=== PATIENT | female | born 1935 | race Caucasian/White ===

== ENCOUNTER 2017-07-18 08:48 | Day surgery (SDC) | payer OTHER ==
[2017-07-12 11:48] VITALS: BMI 33.5
[~2017-07-18 08:48] MED LIST: CYCLOPENTOLATE HCL 1% OPHTH SOLN 2 ML BOTTLE OS SCH; FLURBIPROFEN 0.03% OPHTH SOLN 2.5 ML BOTTLE OS SCH; GENTAMICIN SULFATE 0.3% OPHTHALMIC (EYE DROPS) 5ML BOTTLE OS SCH; PHENYLEPHRINE 2.5% OPHTH SOLN 15 ML BOTTLE OS SCH; TROPICAMIDE 1% OPHTH SOLN 15 ML BOTTLE OS SCH
[2017-07-18] MEDS ORDERED: MIDAZOLAM HCL 2 MG/2 ML SINGLE DOSE VIAL ONE (09:13)
[2017-07-18] MEDS ORDERED: PROPOFOL 20 ML ONE ×3 (09:13→10:48)
[2017-07-18] MEDS ORDERED: ONDANSETRON 4 MG/2 ML VIAL ONE (09:13)
[2017-07-18] MEDS: GENTAMICIN SULFATE 0.3% OPHTHALMIC (EYE DROPS) 5ML BOTTLE ONE ×5 (09:20→09:40)
[2017-07-18] MEDS: KETOROLAC TROMETHAMINE 0.5% 5 ML BOTTLE OPTHALMIC OS SCH ×5 (09:20→09:40)
[2017-07-18] MEDS: CYCLOPENTOLATE HCL 1% OPHTH SOLN 2 ML BOTTLE ONE ×5 (09:20→09:40)
[2017-07-18] MEDS: PHENYLEPHRINE 2.5% OPHTH SOLN 15 ML BOTTLE ONE ×5 (09:20→09:40)
[2017-07-18] MEDS: TROPICAMIDE 1% OPHTH SOLN 15 ML BOTTLE ONE ×5 (09:20→09:40)
[2017-07-18] MEDS ORDERED: LIDOCAINE HCL/PF 2% SDV 5ML VIAL ONE (10:08)
[2017-07-18] MEDS ORDERED: CARBACHOL 0.01% INTRA-OCULAR 1.5 ML VIAL ONE (10:08)
[2017-07-18] MEDS ORDERED: POVIDONE-IODINE 5% OPHTHALMIC PREP 30 ML SOLUTION ONE (10:08)
[2017-07-18] MEDS ORDERED: ACETYLCHOLINE 1:100 INTRA-OCUL 20 MG/2 ML KIT ONE (10:08)
[2017-07-18] MEDS ORDERED: BUPIVACAINE HCL/PF 0.5% (5MG/ML) 10 ML VIAL ONE (10:08)
[2017-07-18] MEDS ORDERED: ACETAMINOPHEN 325 MG TABLET (FP) PO PRN (11:19)
[2017-07-18 12:07] VITALS: TEMP 98.1
[2017-07-18 12:27] VITALS: BP 143/72; PULSE 66
--- NOTE | 2017-07-19 08:22 | OP ---
DATE OF OPERATION: 07/18/2017 PREOPERATIVE DIAGNOSIS: Cataract, left eye. POSTOPERATIVE DIAGNOSIS: Cataract, left eye. PROCEDURE PERFORMED: Cataract extraction via phacoemulsification with insertion of posterior chamber lens implant, left eye. SURGEON: Nic Yan M.D. RETAIL RECEIVING CLERK: Fabi Martinez M.D. ANESTHESIA: Regional sedation. ESTIMATED BLOOD LOSS: Less than 1 mL. COMPLICATIONS: None. SPECIMENS: None. DESCRIPTION OF PROCEDURE: The patient was identified in the holding area. After all risks, benefits and alternatives were explained to the patient, informed consent was obtained. The left eye was marked with a marking pen. The patient then entered the operating room on an Eye Stretcher. After a formal time-out was performed, a 3-mL injection of equal parts of 2% lidocaine with epinephrine and 0.5% Marcaine was given around the left eye. The left eye was then prepped and draped in the usual sterile fashion. An eyelid speculum was placed between the eyelids of the left eye. An infratemporal paracentesis incision was created using a 15-degree blade. Viscoelastic was then injected into the anterior chamber. A 2.4 keratome blade was then used to make a superotemporal incision. A 360-degree continuous curvilinear capsulorrhexis was then created using a bent cystotome and Utrata forceps. Hydrodissection was performed with balanced-saline solution on a cannula. Phacoemulsification was introduced to dissemble and remove the nucleus in its entirety. Irrigation/aspiration was then used to remove any remaining cortical material from the eye. The capsular bag was refilled using viscoelastic. An Roby model SN60WF with a power of 24.0 diopters, serial number [id number], was inspected and found to be defect free, and injected into the capsular bag. Irrigation-aspiration was then used to remove any remaining viscoelastic from the eye. The anterior chamber was reformed using balanced-saline solution. Intracameral injections of Miochol and Monistat were then administered to the left eye, and the pupil came down and was round. All wounds were hydrated with bacitracin-saline solution and noted to be watertight. Upon inspection, the lens was perfectly centered in the capsular bag. The anterior chamber was deep. The eye had adequate pressure, and there was a red reflex present. Topical antibiotic eye drops and ointment were then administered to the left eye. The eyelid speculum was then removed from the left eye. The left eye was patched and shielded. The patient tolerated the procedure well and left the operating room in stable condition. She is to follow up in the eye clinic tomorrow morning at 9 o'clock. NIC YAN M.D. GIBRAN/[id number]
== END 2017-07-18 12:25 | disposition home or self-care (01) ==
LOC: FASU 08:48
PROVIDERS: ATTEND Ophthalmology
PROC: 08RK3JZ Replacement of Left Lens with Synthetic Substitute, Percutaneous Approach (ICD-10-PCS; principal; 2017-07-18 10:41)
DX: H26.8 Other specified cataract (principal)
CPT/HCPCS: 94760